=== PATIENT | female | born 1965 | race Caucasian/White ===

== ENCOUNTER 2023-03-14 10:24 | Outpatient (CLI) | payer OTHER | END 2023-03-14 10:25 | disposition home or self-care (01) | LOC: SCSMRI 10:24 | PROVIDERS: ATTEND Orthopaedic Surgery | DX: M12.811 Other specific arthropathies, not elsewhere classified, right shoulder (principal); M94.211 Chondromalacia, right shoulder; M25.711 Osteophyte, right shoulder; M85.611 Other cyst of bone, right shoulder; M75.111 Incomplete rotator cuff tear or rupture of right shoulder, not specified as traumatic; S43.401A Unspecified sprain of right shoulder joint, initial encounter ==

== ENCOUNTER 2023-09-13 13:20 | Outpatient (CLI) | payer OTHER | END 2023-09-13 13:21 | disposition home or self-care (01) | LOC: CT 13:20 | PROVIDERS: ATTEND Orthopaedic Surgery | DX: Z47.1 Aftercare following joint replacement surgery (principal); M19.011 Primary osteoarthritis, right shoulder; Z96.611 Presence of right artificial shoulder joint ==